=== PATIENT | female | born 1970 | race Caucasian/White ===

== ENCOUNTER 2016-04-02 05:44 | Day surgery (SDC) | payer OTHER ==
[2016-04-02] VITALS (17 sets, daily range): BP systolic 97–124; BP diastolic 46–68; PULSE 74–112; RESP 10–18; O2SAT 93–100
[~2016-04-02] VITALS: Ht 170.2 cm; Wt 84.1 kg
[~2016-04-02 05:44] MED LIST: ALBU8.5H2 INHALATION; CITA20TA11 PO; FLUT12AE8 IH; Lactated Ringer's 1,000 ML IV ONE; MEDR10TA PO; MIRENA IUD VAGINAL
[2016-04-02] MEDS ORDERED: CeFAZolin 2 Gm/50 mL D5W Duplex Bag IV ONE (05:51)
[2016-04-02 06:43] LABS: BASOPHILS % (AUTO) 0.4 % (0-3); EOSINOPHILS % (AUTO) 0.8 % (0-5); MONOCYTES % (AUTO) 8.2 % (4-12); Mean Corpuscular Hemoglobin 30.7 pg (27.0-35.0); Mean Corpuscular Volume 91.1 fL (81-100); NEUTROPHILS % (AUTO) 50.6 % (40-74); Platelet Count 190 bil/L (150-400)
--- NOTE | 2016-04-02 07:27 | PCM.HPANE ---
Patient Data Surgeon Admitting Provider: Attending Provider:Destiney Mendez MD Primary Care Physician:Yo Mead MD Other Provider:Sara Pinkingham Anesthesia Reason for Visit Fibroids, Abnormal Uterine Bleeding Ht/WT & BMI Height (Feet): 5 Height (Inches): 7 Weight (Kilograms): 84.1 Body Mass Index 29.00 Allergies Coded Allergies: No Known Allergies (Unverified , 01/19/16) Past Anesthesia History Anesthesia History: Denies:: Anesthesia Reactions, Malignant Hyperthermia Diabetes History Hx Diabetes?: No MRSA MRSA: No Medications Home Meds Incl Beta Randa: No Reported Medications Citalopram 20 Mg [id number] Mg PO DAILY Ref 0 03/28/16 [Mirena Iud] No Conflict Check Vaginal 20MCG/24H 03/28/16 Medroxyprogesterone Acetate (Provera)10 Mg Qicztm32 Mg PO DAILY 03/28/16 Fluticasone Propionate (Flovent HFA 110 mcg)12 Gm Aer.w.adap1 Puff IH BID #12 GM Ref 0 03/28/16 Albuterol HFA (Proair HFA)8.5 Gm Hfa.aer.ad2 Puffs INHALATION Q4H PRN PRN #1 INHALER 03/28/16 Discontinued Reported Medications Citalopram 20 Mg Tablet #45 01/19/16 Fluticasone Propionate (Flovent HFA 220 mcg)12 Gm Aer.w.adap #24 01/19/16 Discontinued Scripts Medroxyprogesterone Acetate (Provera)10 Mg Qirzmc41 Mg PO BID bleeding #20 TABLET Ref 3 Prov:Meaghan Crow MD 01/19/16 History History of ENT Problems?: Yes HEENT History: Positive for:: Sinus Problem (ALLERGIC RHINITIS) Hx of Heart Problems?: No Cardiovascular History: Denies:: Congestive Heart Failure Hypertension Irregular Heartbeat Valvular Heart Disease Hx of Respiratory Problem?: Yes Respiratory History: Positive for:: Asthma Use of Inhalers / NEBS Denies:: Tuberculosis Use of C-PAP Machine (SNORES) Hx Neurologic Problems?: Yes Hx of GI Problems?: No Hx of Problems?: Yes Female Hx: Denies:: Currently (S/P C/S X2,ENDOMETRIAL BX) Skin History: Denies:: History Skin Disorders? Pressure Ulcers Hx Musculoskeletal Problems?: No Hx of Psycho/Social Problems?: Yes Psycho Social History: Positive for:: Hx Depression Hx Surgeries?: Yes (C/S X2,ENDOMETRIAL BX) Hx Any Other Health Problems?: Yes Other History: Denies:: Cancer Endocrine Disease Hospitalization Thyroid Disease History Blood Transfusions: Denies:: Blood Transfusions Hx Diabetes: No Hx Alcohol Use: YesAlcoholic Drinks Per Day: 3-5/DAY Smoking Status: Current Every Day Smoker Have You Smoked inLast 12 mo: YesApprox How Many Cigarettes/day: 1 PPD Stop/Bang Treated for Sleep Apnea?: No Do You Have a CPAP Machine?: No S-Snoring: Do You Snore Loudly: Yes T-Tired: feel tired, fatigued: Yes O-Obsered: Observed not breath: No P-Blood Pressure: treated: No B- Body Mass Index > 35 kg/m2: No A- Age over 50: No N- Neck Large Circumference: No G- Gender Male: No BONITA Total Score: 2 BONITA Risk Assessment: Low Risk, <3 Yes Risk Assessment Category Category 1A: Patient has history of documented sleep apnea, and HAS NOT received any narcotic, sedative or anesthesia administration during this stay. Category 1B: Patient has history of documented sleep apnea, and HAS received any narcotic , sedative or anesthesia administration during this stay Category 2: Patient has SUSPECTED Obstructive Sleep Apnea, and HAS received any narcotic , sedative or anesthesia administration during this stay. Category 3: Patient has SUSPECTED Obstructive Sleep Apnea and HAS NOT received narcotic, sedative or anesthesia administration during this stay. Category 4: Outpatient in Procedural Areas with known sleep apnea or who screen positive for High Risk via the STOP/BANG questionnaire. Exam Exam Vital Signs Vital Signs Date Time Temp Pulse Resp B/P Pulse Ox O2 Delivery O2 Flow Rate FiO2 04/02/16 06:10 36.5 88 16 114/68 96 Room Air General Appearance: Oriented X3 HEENT/AIRWAY: MP 2 Lungs: Normal Air Movement Heart: Regular Rate/Rhythm Meds/Labs/Diagnostics Admission Meds Current Medications Lactated Ringer's (Lr) 1,000 ml @ 120 mls/hr Q8H20M ONCE IV Last administered on 04/02/16t 05:50; Start 04/02/16 at 05:00; Stop 04/02/16 at 13:19 Labs Test 04/02/16 06:15 White Blood Count 9.5th/mm3 (3.8-10.1) Red Blood Count 4.59mil/mm3 (3.90-5.20) Hemoglobin 14.1g/dL (12.0-15.6) Hematocrit 41.8% (35.0-46.0) Mean Corpuscular Volume 91.1fL (81-100) Mean Corpuscular Hemoglobin 30.7pg (27.0-35.0) Mean Corpuscular Hemoglobin Concent 33.7% (32.0-37.0) Red Cell Distribution Width 13.5% (12.3-15.4) Platelet Count 190bil/L (150-400) Neutrophils (%) (Auto) 50.6% (40-74) Lymphocytes (%) (Auto) 39.9% (14-46) Monocytes (%) (Auto) 8.2% (4-12) Eosinophils (%) (Auto) 0.8% (0-5) Basophils (%) (Auto) 0.4% (0-3) Hematology Comments Sodium Level 136mEq/L (134-144) Potassium Level 4.6mEq/L (3.5-5.2) Chloride Level 103mEq/L (97-108) Carbon Dioxide Level 21mmol/L (18-29) Blood Urea Nitrogen 13mg/dL (6-24) Creatinine 0.66mg/dL (0.57-1.00) Estimat Glomerular Filtration Rate 138mL/min (>59) Glucose Level 101mg/dL (60-99) Calcium Level 8.9mg/dL (8.5-10.1) Human Chorionic Gonadotropin, Qual Negative (Negative) Plan Impression Patient chart reviewed, patient interviewed and anesthestic plan with risks, benefits, and alternatives discussed, and informed consent obtained. NPO Status: [id number] ASA Physical Status: ASA2 Mod Systemic Disease Anesthetic Plan: GA Bene/Risks/Altern/Consents: Yes HP Complete Prior to Induction: Yes Yossi Finley MD Apr 02, 2016 07:27
[2016-04-02] MEDS ORDERED: Lactated Ringer's 1,000 ML IV SCH ×2 (07:28→11:02)
[2016-04-02] MEDS ORDERED: Lactated Ringer's 500 ML IV PRN (07:28)
[2016-04-02] MEDS ORDERED: Ondansetron 2 mg/mL 2 mL Inj IVPUSH PRN ×2 (07:30→11:05)
[2016-04-02] MEDS ORDERED: Phenylephrine 10,000 mCg/mL Inj IVPUSH PRN (07:30)
[2016-04-02] MEDS ORDERED: Labetalol 5 mg/mL 4 mL Inj IV PRN (07:30)
[2016-04-02] MEDS ORDERED: Dexamethasone 4 mg/mL Inj IVPUSH PRN (07:30)
[2016-04-02] MEDS ORDERED: fentaNYL-PF 50 mCg/mL 2 mL Inj IVPUSH PRN (07:30)
[2016-04-02] MEDS ORDERED: HYDROmorphone 1 mg/mL Inj IVPUSH PRN (07:30)
[2016-04-02] MEDS ORDERED: EPHEDrine Sulfate 50 mg/mL Inj IVPUSH PRN (07:30)
[2016-04-02] MEDS ORDERED: MetoCLOpramide 5 mg/mL 2 mL Inj IVPUSH PRN ×2 (07:30→11:05)
[2016-04-02] MEDS ORDERED: Bupivacaine-MPF 0.5% W/EPI 30 mL Inj INFILTRATE ONE (08:43)
[2016-04-02] MEDS ORDERED: Lactated Ringer's 1,000 ML IV ONE (10:43)
[2016-04-02] MEDS ORDERED: HYDROcodone-APAP 5-325 mg Tablet PO PRN (11:05)
[2016-04-02] MEDS ORDERED: Acetaminophen IV 1,000 MG in IV Premix 1 EACH IV PRN (11:05)
[2016-04-02] MEDS ORDERED: Senna-Docusate 8.6-50 mg Tablet PO PRN (11:05)
[2016-04-02] MEDS ORDERED: Alum-Mag Hydrox-Simeth 30 mL Suspension PO PRN (11:05)
[2016-04-02] MEDS ORDERED: MetoCLOpramide 5 mg/mL 2 mL Inj ONE (12:23)
[2016-04-02] MEDS ORDERED: Ondansetron 2 mg/mL 2 mL Inj ONE (12:23)
[2016-04-02] MEDS ORDERED: Dexamethasone 4 mg/mL Inj ONE (12:23)
[2016-04-02] MEDS ORDERED: Neostigmine 1 mg/mL 5 mL Inj ONE (12:23)
[2016-04-02] MEDS ORDERED: Propofol 10,000 mCg/mL 20 mL Inj ONE (12:23)
[2016-04-02] MEDS ORDERED: Ketamine 10 mg/mL 20 mL Inj ONE (12:23)
[2016-04-02] MEDS ORDERED: HYDROmorphone 2 mg/mL Inj ONE (12:23)
[2016-04-02] MEDS ORDERED: Furosemide 10 mg/mL 4 mL Inj ONE (12:23)
[2016-04-02] MEDS ORDERED: Rocuronium 10 mg/mL 5 mL Inj ONE (12:23)
[2016-04-02] MEDS ORDERED: Glycopyrrolate 0.2 mg/mL 5 mL Inj ONE (12:23)
--- NOTE | 2016-04-02 13:08 | PCM.ANEP1 ---
Post Anesthesia Phase 1 PACU Phase 1 Assessment Vital Signs Vital Signs Date Time Temp Pulse Resp B/P Pulse Ox O2 Delivery O2 Flow Rate FiO2 04/02/16 12:20 36.5 100 18 102/51 95 Nasal Cannula 2.00 100 04/02/16 12:00 95 16 100/46 93 Nasal Cannula 2 04/02/16 11:55 105 14 124/67 95 Nasal Cannula 2 04/02/16 11:45 36.2 96 99/46 95 Room Air 04/02/16 11:30 106 98/48 94 Room Air 04/02/16 11:22 82 10 104/62 100 Simple Mask 8 04/02/16 11:20 83 104/62 100 Simple Mask 8 04/02/16 11:15 82 102/57 100 Simple Mask 8 04/02/16 11:10 81 102/57 100 Simple Mask 8 04/02/16 11:05 79 10 102/54 100 Simple Mask 8 04/02/16 11:00 74 11 97/51 99 Simple Mask 8 04/02/16 10:57 35.9 77 12 98/51 98 Simple Mask 8 04/02/16 06:10 36.5 88 16 114/68 96 Room Air Anesthetic Administered: GA Level of Alertness: Awake, talking GERONIMO's with Equal Strength: Yes Pain: No Airway Device: Oralpharangeal Airway Lungs: Normal Air Movement Yossi Finley MD Apr 02, 2016 13:08
--- NOTE | 2016-04-02 13:08 | PCM.ANEP2 ---
Post Anesthesia Evaluation ASA/CMS Post Anesthesia VS in Patient's Normal Range?: Yes Resp Stable; Airway Patent?: Yes CV Function & Hydration Stable: Yes Mental Status Recovered?: Yes Pain control Satisfactory?: Yes N/V Control Satisfactory?: Yes Yossi Finley MD Apr 02, 2016 13:08
--- NOTE | 2016-04-02 14:19 | NUR ---
PT received from PACU with belongings at 1220. Moved to bed and repositioned, pt responsive but not fully alert. Oxygen on at 2lpm via NC, IV infusing at 125cc/hr. Cole secure and draining blue tinged urine. Abdomen incision sites intact, no vaginal bleeding noted. PT sleepy but does rouse and answer questions. Spouse and children in room at 1230 and updated that patient will be remaining overnight per MD order for observation and pain control. Pt denies pain at this time. Spous eleft with children for lunch. Pt oxygen removed at 1400 with oygen sats holding at 97%. Temp noted to be 38.0 at 1345, wrapped in 4 blankets up around head. Rechecked at 1420 with temp down to 37.6, Will continue to monitor. Dr Mendez updated of patient desire to discharge home and temp.
--- NOTE | 2016-04-02 15:30 | OP ---
[address] [address] OPERATIVE REPORT PATIENT: ZHEN VALENTINE : 1970 MR#: [id number] ADMIT: 04/02/2016 JOB ID: [id number] DATE OF SURGERY: 04/02/2016 SURGEON: Destiney Mendez MD EMPLOYEE WELLNESS/FITNESS COORDINATOR: Victor Manuel Zarate MD SECOND SELVAGE MACHINE OPERATOR: Medical student. PRODUCT ACCOUNTANT physician as a engineer first assistant is necessary to complete the procedure. PREOPERATIVE DIAGNOSIS(ES): A 45-year-old female, para 2, menorrhagia, sub- mucosa uterine fibroid. POSTOPERATIVE DIAGNOSIS(ES): A 45-year-old female, para 2, menorrhagia, sub- mucosa uterine fibroid. INDICATION OF THE PROCEDURE: A 45-year-old female, para 2, menorrhagia, sub mucosa uterine fibroid. This is a patient who had heavy menstruation and was noticed to have a submucosal uterine fibroid about 5-6 cm and the endometrium biopsy showed no malignancy. Decision was made to have a total hysterectomy and also with bilateral salpingectomy. Decision was made to keep the ovaries if they look normal. The patient understood the risk of infection, bleeding, injury to the organs around the uterus including but not limited to the bladder, ureters, major vessels and nerves and bowels. She understood the risk of blood transfusion. She understood the risk of the procedure converted to laparotomy. We also discussed about the possibility of malignancy by imaging history and benign endometrium biopsy, the chance of malignancy is minimal. If the pathology showed malignancy, there was a possibility for reoperating. DESCRIPTION OF PROCEDURE: Patient was transferred to operating room after general anesthesia was noted to be adequate. She was placed in the dorsal lithotomy position. She was prepared in a normal sterile fashion and Cole catheter inserted for urine drainage. Speculum inserted to vagina to expose the cervix. The cervix was grasped by a single-tooth tenaculum. The cervix was dilated without difficulty and the medium-sized v-care was placed for manipulating the uterus. Then the Veress needle inserted through the umbilical area. After confirmed of placement, CO2 gas inserted to form pneumoperitoneum. At this time, the Veress needle removed. A 5 mm incision placed on her umbilicus. A 5 mm trocar was placed with direct visualization. Then another two 5 mm incisions were placed at the lower abdomen and two 5 mm trocars were placed with direct visualization. At this time, the pelvis and abdominal cavity was examined. There was no abnormal finding of her upper abdominal cavity. Her lower abdominal cavity noticed the uterus was enlarged about 10 cm in size. Right ovary and tubes looked normal and left tube looked normal. The left ovary has about 3 cm simple cyst. There was adhesion was noticed between her bladder and her anterior uterine wall and the uterine cervix. At this time, then the procedure started on the left side. The right fallopian tube was grasped and the mesosalpinx was grasped, coagulated and cut with a standard beam instrument in steps. At this time, the ovarian uterine ligament and round ligament were grasped, coagulated and cut in steps. The broad ligament was brought down with coagulation and cut to the level of the internal cervical os. The anterior lip of the broad ligament was carried down to the midline and the posterior slip was carried down to the level of the uterine sacral ligament. Then the broad ligament was skeletonized to expose the uterine artery. The uterine was coagulated multiple times, and after the bladder tried to lower down from the cervix. Then the attention was transferred to the right side. The same procedure was performed on the right side and then after the coagulation of the right uterine artery, the right uterine artery was cut and the bladder was further from the cervix and then lowered down. Then, at this time, it was noticed the whole cervical area was well exposed and good hemostasis confirmed. Then the corpectomy was performed with the standard beam and then this incision was extended completely circular and the uterus was from the vagina. Then the uterus was removed vaginally completely. At this time, the attention was changed back to the vaginal cuff. The vaginal cuff was repaired laparoscopically continuously. After the repair, hemostasis was confirmed for the vaginal cuff and for the pedicles in her pelvis. Then the attention was transferred to the left ovary which had a simple cyst. The 5 mm incision was placed on the cyst and clear fluid was noticed. No further management was done. At this time, the incision was placed by 4-0 Monocryl subcutaneously and then the attention was transferred to cystoscopy. A cystoscopy scope was inserted to her bladder. No laceration of bladder noticed. But there was no urine seen from both of her ureters. At this time, I think the lack of urine is because of dehydration, so 20 mg of Lasix and methylene blue was given. During waiting , there was changing hands between physicians. Perforation of the bladder was suspected during this manuver. Scope was replaced and noticed a perforation about or less than 5mm. There was no, or minimal fluid leaking out, and the bladder can maintain good pressure. The cystoscopy was completed with seeing blue- colored urine from both her ureters. Decision made that no repair will be needed at this moment. At this time, all fluid drained. Cole catheter reinserted. All instrument, needles, laps and gauzes counted correct twice. EBL during the procedure was 50 cc. IV fluid given was 1.1 L. The patient was transferred to recovery room in a stable condition. [facility]ENTER[facility]man
--- NOTE | 2016-04-02 16:17 | NUR ---
UP TO BEDSIDE AND AMBULATED IN ROOM WITHOUT CONCERN. PT IS ALERT AND SPEAKING WITH FAMILY. TOLERATED GENERAL DIET WELL. LINCOLN CONTINUES TO DRAIN BLUE TINGED URINE.
[2016-04-02] MEDS ORDERED: Influenza (Adult) Vaccine 0.5 mL Syringe IM ONE (16:30)
--- NOTE | 2016-04-02 17:52 | NUR ---
PT diuresing large amount. Intake of oral fluids excellent. IV to SL.
[2016-04-02] MEDS ORDERED: Senna-Docusate 8.6-50 mg Tablet PO SCH (20:30)
--- NOTE | 2016-04-02 23:31 | NUR ---
shift note Assumed care of pt. at 1930. Pt. pain controlled with IBU and oxycodone. SCD's on while in bed. Cole patent, urine changing from bluish green to faint green at end of shift. Pt. ambulated x1, tolerated well. Pt. reports being eager to go home tomorrow.
--- NOTE | 2016-04-03 00:22 | NUR ---
Pain: Delightful post of vag hyst pt states she has no pain. "When is this pain supposed to start?". Does wish to be medicated routinely to avoid onset of pain. Stable, normal bowel tones, has not passed flatus. Understands POC, with assessment mid shift, pain meds @ 0300 and funes to be dc's @ 0500. Provider will round on patient in am with plan to discharge. Patient would like flu shot prior to discharge.
[2016-04-03 03:00] VITALS: BP 100/50; PULSE 90; RESP 18
[2016-04-03] MEDS ORDERED: Influenza (Adult) Vaccine 0.5 mL Syringe IM ONE ×2 (03:13→10:57)
--- NOTE | 2016-04-03 05:26 | NUR ---
Kelsey elaine'd @ 0500 per MD order. 1400 output this shift. Hat in bathroom for patient use. Urine pale light blue/green.
[2016-04-03] MEDS ORDERED: CeFAZolin Inj 2 GM in IV Premix 1 EACH IV SCH (06:00)
[2016-04-03] MEDS ORDERED: IBUP-1827 PO (06:34)
[2016-04-03] MEDS ORDERED: OXYC1TAB24 PO (06:34)
[2016-04-03] MEDS ORDERED: DOCU-41 PO (06:34)
--- NOTE | 2016-04-03 06:43 | PCM.DIGYN ---
Surgical Discharge Instruction Dates of Hospitalization Date of Hospital Admission Apr 02, 2016 at 12:22 Providers Admitting Physician: Destiney Mendez MD Primary Care Physician: Yo Mead MD Attending Physician: Destiney Mendez MD Diagnosis at Time of Discharge Diagnosis at time of discharge Status post total vaginal hysterectomy with bilateral salpingectomy Problems: Diet Discharge Diet: No restrictions Activity Discharge Activity-General: Try not to overdue, Be up and about, Balance rest and activity, Activity as pain allows, Activity as energy allows, No lifting > 10 pounds for 4-6 weeks Dressing and Incisional Care Hygiene: May shower, DO NOT soak incision under water, NO bathtub, hot tub or whirlpool Additional Instructions Discharge Instructions -It is very important that your avoid straining for the next 6 weeks as the increased pressure can dislodge your stitches, this means that we need to keep your bowel movements easy and that you need to avoid lifting anything greater than 10 pounds for 6 weeks. -We have given you a stool softener to keep reduce the effort of your bowel movements -Try to minimize your use of Percocet as this will tend to make you constipated -That being said use the Ibuprofen before your pain gets too bad, it is easier to stay ahead of pain and prevent it than catch back up once the pain is established -You have been prescribed an antibiotic for a likely Urinary tract infection, please take all meds as directed until the bottle is empty -You have been discharged with a Cole catheter, please care for and empty that device as directed Follow Up Plan Follow Up Plan Follow up with Dr. Mendez in 1 week Follow-up Provider (F9): Destiney Mendez MD Follow-up appointment: Weeks (1) Call your provider for: Fever, Chills, Shortness of breath, Vomitting, Drainage at incision, Heavy vaginal bleeding, Wound redness, Increasing pain, Other (blood in your urine) David Urias DO Apr 03, 2016 06:43
--- NOTE | 2016-04-03 07:05 | PCM.DC.SUR ---
Discharge Summary Date of Service: Apr 03, 2016 Date of Hospital Admission: Apr 02, 2016 at 12:22 Date of Operation(s): 04/02/15 Date of Discharge: 04/03/15 Diagnosis at Time of Discharge Status post Total Vaginal Hysterectomy with BL salpingectomy Problems: Operation Total Vaginal Hysterectomy with BL salpingectomy Brief History and Physical: Taken From Operative Note composed by Dr. Mendez on 04/02/15 This is a patient who had heavy menstruation and was noticed to have a submucosal uterine fibroid about 5-6 cm and the endometrium biopsy showed no malignancy. Decision was made to have a total hysterectomy and also with bilateral salpingectomy. Decision was made before the procedure that to keep the ovaries if they look normal. The patient understood that for the procedure the risk of infection, bleeding, injury to the organs around the uterus including but not limited to the bladder, ureters, major vessels and nerves and bowels. She understood the risk of blood transfusion. She understood the risk of the procedure converted to laparotomy. We also discussed about the possibility of malignancy by imaging history and benign endometrium biopsy, the chance of malignancy is minimal. If the pathology showed malignancy, there was a possibility for reoperating. Physical Exam Gen: A/O x3 pleasant cooperative woman in NAD HEENT: PERRL, EOMI, no scleral icterus, no conjunctival pallor, mucous membranes pink and moist Neck: Supple, non tender, no JVD CV: RRR no murmurs rubs or gallops Resp: Lungs CTA BL, no wheezing rales or rhonchi Abdomen: Soft, mildly diffusely appropriately tender, well approximated laparoscopic incisions without erythema or discharge, BS + 4q Extr: Non cyanosis, clubbing, or edema Neuro: CN 2-12 grossly intact, no focal neurologic deficit Psych: Pleasant and appropriate mood and affect Hospital Course: Taken from Operative note composed by Dr. Mendez on 04/02/15 Patient was transferred to operating room after general anesthesia was noted to be adequate. She was placed in the dorsal lithotomy position. She was prepared in a normal sterile fashion and Funes catheter inserted for urine drainage. Speculum inserted to vagina to expose the cervix. The cervix was grasped by a single-tooth tenaculum. The cervix was dilated without difficulty and the medium-sized manipulator placed for manipulating the uterus. Then the Veress needle inserted through the umbilical area. After confirmed of placement , CO2 gas inserted to form pneumoperitoneum. At this time, the Veress needle removed. A 5 mm incision placed on her umbilicus. A 5 mm trocar was placed with direct visualization. Then another two 5 mm incisions were placed at the lower abdomen and two 5 mm trocars were placed with direct visualization. At this time, the pelvis and abdominal cavity was examined. There was no abnormal finding of her upper abdominal cavity. Her lower abdominal cavity noticed the uterus was enlarged about 10 cm in size. Right ovary and tubes looked normal and left tube looked normal. The left ovary has about 3 cm simple cyst. There was adhesion was noticed between her bladder and her anterior uterine wall and the uterine cervix. At this time, then the procedure started on the left side. The right fallopian tube was grasped and the mesosalpinx was grasped, coagulated and cut with a standard beam instrument in steps. At this time, the ovarian uterine ligament and round ligament were grasped, coagulated and cut in steps. The broad ligament was brought down with coagulation and cut to the level of the internal cervical os. The anterior lip of the broad ligament was carried down to the midline and the posterior slip was carried down to the level of the uterine sacral ligament. Then the broad ligament was skeletonized to expose the uterine artery. The uterine was coagulated multiple times, and after the bladder tried to lower down from the cervix. Then the attention was transferred to the right side. The same procedure was performed on the right side and then after the coagulation of the right uterine artery, the right uterine artery was cut and the bladder was further from the cervix and then lowered down. Then, at this time, it was noticed the whole cervical area was well exposed and good hemostasis confirmed. Then the corpectomy was performed with the standard beam and then this incision was extended completely circular and the uterus was from the vagina. Then the uterus was removed vaginally completely. At this time, the attention was changed back to the vaginal cuff. The vaginal cuff was repaired laparoscopically continuously. After the repair, hemostasis was confirmed for the vaginal cuff and for the pedicles in her pelvis. Then the attention was transferred to the left ovary which had a simple cyst. The 5 mm incision was placed on the cyst and clear fluid was noticed. No further management was done. At this time, the incision was placed by 4-0 Monocryl subcutaneously and then the attention was transferred to cystoscopy. A cystoscopy scope was inserted to her uterus and was noticed there was no urine spilled from both of her ureters. At this time, I think the lack of urine is because of dehydration, so 20 mg of Lasix and methylene blue was given. During waiting of the medication to get in fill into the bladder, there was replacement of the cystoscopy scope. During the replacement, there was a laceration. Her bladder stone that was less than 5 mm and there was no active bleeding noticed and with the cystoscopy, there was no fluid leaking out significantly because the tension was well maintained with no extra fluid to go inside her bladder. After the methylene blue was given, there was still of the blue- colored urine from both her ureters. At this time, all fluid drained. Funes catheter reinserted. All instrument, needles, laps and gauzes counted correct twice. EBL during the procedure was 50 cc. IV fluid given was 1.1 L. The patient was transferred to recovery room in a stable condition. Prior to discharge the patient had continued post void residual after urination of approximately 250-300 cc, furthermore she appeared to have a urinary tract infection. Thus she was discharged with a Funes catheter and a 1 week prescription for ciprofloxacin and instructed to follow up in [address] Mendez for further evaluation. At the time of discharge the patient was doing quite well, in a very minimal amount of pain that was tolerable with PO analgesia, she was ambulating independently without difficulty, her appetite was good, and she stated that she was ready to go home. Disposition: Home with no needs Follow-up Plan: Follow up with Dr. Mendez in 2 weeks ([Mirena Iud]) VAGINAL (Reported) 20MCG/24H Albuterol HFA (Proair HFA) 8.5 Gm Hfa.aer.ad 2 PUFFS INHALATION Q4H PRN PRN PRN (Reported) Citalopram (Citalopram) 20 Mg Tablet 30 MG PO DAILY (Reported) Docusate Sodium (Colace) 100 Mg Capsule 100 MG PO BID PRN PRN For Constipation Fluticasone Propionate (Flovent HFA 110 mcg) 12 Gm Aer.w.adap 1 PUFF IH BID ( Reported) Ibuprofen (Ibuprofen) 600 Mg Tablet 600 MG PO Q6H PRN PRN For Mild Pain Medroxyprogesterone Acetate (Provera) 10 Mg Tablet 10 MG PO DAILY (Reported) oxyCODONE-Acetaminophen 5-325 mg (oxyCODONE-Acetaminophen 5-325 mg) 1 Each Tablet 1-2 TAB PO Q4H PRN PRN For Moderate Pain Attending Statement: Patient could not void well after funes catheter removed today. Foely was replaced and patient request to go home today. She will go home with leg bag for 2 weeks with cipro 100mg bid. I will see her in one week. I will contact urologist and schedule appoinment for her for evaluation with urologist before funes be removed. copies to: Yo Mead MD, David E DO Apr 03, 2016 07:05 Destiney Mendez MD Apr 06, 2016 15:36
[2016-04-03 07:16] LABS: BASOPHILS % (AUTO) 0.2 % (0-3); EOSINOPHILS % (AUTO) 0.1 % (0-5); MONOCYTES % (AUTO) 6.9 % (4-12); Mean Corpuscular Hemoglobin 30.5 pg (27.0-35.0); Mean Corpuscular Volume 92.4 fL (81-100); NEUTROPHILS % (AUTO) 63.3 % (40-74); Platelet Count 172 bil/L (150-400)
[2016-04-03 09:29] VITALS: BP 109/56; PULSE 96; RESP 16; O2SAT 98
[2016-04-03] MEDS: oxyCODONE-Acetamin 5-325 mg Tablet PO PRN ×2 (09:45→14:17)
--- NOTE | 2016-04-03 10:11 | NUR ---
[id number] assessment: Initial assessment shortly after 0900. Pt's VSS 109/56 P 98 T. 36.6 orally. Pt reports ambulating this morning, voiding a normal amount after catheter removed (only 100ml in urine container. Nurse unsure if some of pt's void missed container). Pt ate a breakfast sandwich, drinking PO fluids and rating her incisional pain 2/10 with a smile. Nurse called assessment to Dr. Mednez. Nurse went to pull pain medication when emergency light went on in her room. Upon reentering her room pt reported that pt had sudden severe pain when she ambulated to bathroom 10-03/09 sharp rt abdominal moving to back and then "... all over". Dr. Mendez and other nurses already in the room answering emergency light. Bladder scan showed 251ml. 600mg ibuprofen and two tablets of percocet. K-pad provided to also manage pain. 20 minutes later pt more relaxed and she said her pain is subsiding now that her pain medication is set in. Nurse set call light near pt, lowered lights and will reassess.
--- NOTE | 2016-04-03 13:15 | NUR ---
Pt reporting mild rt shoulder pain. She has ambulated hallway shortly after lunch. Her pain is decreased and at an acceptable level. Repeat bladder scanner only scanned 25ml at 1215. She denied being able to void. She is increasing her PO intake. Provider notified of above. Plan to rebladder scan in one hour, then attempt to void and rebladder scan.
[2016-04-03] MEDS ORDERED: Lidocaine 2% 5 mL Urojet Topical Jelly Syringe ONE (13:53)
[2016-04-03 14:28] VITALS: BP 116/57; PULSE 76; RESP 18; O2SAT 97
--- NOTE | 2016-04-03 15:11 | NUR ---
Bladder scanned at 1325 for 287ml. Pt unable to void at 1330. Repeat bladder scanned 6ml (scanned by same nurse, on male setting d/t vaginal hysterectomy in same location tried several times). Dr. Mendez notified. Cole catheter ordered and inserted for 200ml right away. Nurse called provider back. Plan for discharge to home with leg bag and cipro antibiotics 500mg po bid for 7 days. Prescription electronically ordered to [facility]'s pharmacy. Pt continues to manage pain with ibuprofen and percocet. She received discharge instructions for use of home medications. She also received hard copy's of colace, ibuprofen and percocet prescription that pt's is filling now. Evening shift nurse notified of discharge plans and will finalize discharge orders, signing and leg bag teaching.
--- NOTE | 2016-04-04 10:39 | PATH ---
SURGICAL PATHOLOGY Attending Physician:Destiney Mendez MD CASE STATUS: Signed Out PATIENT NAME: ZHEN VALENTINE PID: [id number] : 1970 DATE COLLECTED:04/02/2016 20:21 SPECIMEN: Uterus +/- tubes/ovaries, except neoplastic, prolapse CLINICAL HISTORY: FIBROIDS, ABNORMAL UTERINE BLEEDING 1). UTERUS WITH CERVIX, BILATERAL FALLOPIAN TUBES FINAL DIAGNOSIS: 1.UTERUS WITH CERVIX, BILATERAL FALLOPIAN TUBES: INTRAMURAL LEIOMYOMA. BENIGN PARATUBAL CYSTS. ICD10 CODE D25.1 N83.9 GROSS DESCRIPTION: The specimen is received in formalin, labeled with the patient's name, sublabeled as uterus w/ cervix & bilateral fallopian tubes, and consists of a uterus (144 g, 5.6 cm AP, 9.4 cm SI, 6.2 cm ML) with attached fimbriated fallopian tubes (right: length-6.2 cm, diameter-0.6 cm; left: length-7.5 cm, diameter-0.5 cm). The ovaries are absent. The cervix (1.9 cm AP, 3.1 cm ML) has a transverse os and patent endocervical canal. The endometrium (average thickness-0.1 cm) is lacy-pink smooth and flat. The myometrium (thickness-0.9 cm to 3.1) is lacy and contains a murphy-white solid firm well circumscribed mass (4.8 x 4.4 x 3.5 cm) protruding into the endometrial cavity from the posterior aspect. The fallopian tubes have lacy-purple smooth shiny serosa with multiple paratubal cysts (0.6 cm-4.8 cm) containing clear colorless fluid. The lumens are lacy and unremarkable. 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 04/03/16 JM MICRO DESCRIPTION: See diagnosis. ICD-9 CODES: CPT CODES: 1: 87989 Electronically Signed Out Nani Iglesias MD [facility] [address], [place] [address] Technical component performed at [facility], [address], [place], [address]
== END 2016-04-03 17:30 | disposition home or self-care (01) ==
LOC: SAS 05:44 → UNDOADMIN 12:22 → FBC 12:22 → SAS 04-03 17:30
PROVIDERS: ATTEND Obstetrics & Gynecology
DX: N93.9 Abnormal uterine and vaginal bleeding, unspecified (principal); D25.0 Submucous leiomyoma of uterus; J45.909 Unspecified asthma, uncomplicated; F41.9 Anxiety disorder, unspecified; F17.210 Nicotine dependence, cigarettes, uncomplicated; F32.9 Major depressive disorder, single episode, unspecified; Z79.890 Hormone replacement therapy; Z23 Encounter for immunization
CPT/HCPCS: 36415; 58571; 80048; 84703; 85025; 88307; 90471; J0131; J1100; J1170; J1940; J2405; J2710; J2765; J7120; Q2039

== ENCOUNTER → 2016-10-04 | Day surgery (SDC) | payer OTHER ==
[2016-10-04] VITALS (10 sets, daily range): BP systolic 108–132; BP diastolic 71–91; PULSE 79–98; RESP 10–18; O2SAT 96–100
[~2016-10-04] VITALS: Ht 170.2 cm; Wt 84.5 kg
[~2016-10-04] MED LIST changes: +Bupivacaine-MPF 0.5% 30 mL Inj INFILTRATE ONE; +CeFAZolin Inj 2 GM in IV Premix 1 EACH IV ONE; +Dexamethasone 4 mg/mL Inj IVPUSH PRN; +Dexamethasone 4 mg/mL Inj ONE; +EPHEDrine Sulfate 50 mg/mL Inj IVPUSH PRN; +HYDROcodone-APAP 5-325 mg Tablet PO PRN; +HYDROmorphone 1 mg/mL Inj IVPUSH PRN; +Ketamine 10 mg/mL 20 mL Inj ONE; -Lactated Ringer's 1,000 ML IV ONE; +Lactated Ringer's 1,000 ML IV SCH; +Lactated Ringer's 500 ML IV PRN; -MEDR10TA PO; -MIRENA IUD VAGINAL; +MetoCLOpramide 5 mg/mL 2 mL Inj IVPUSH PRN; +Ondansetron 2 mg/mL 2 mL Inj IVPUSH PRN; +Ondansetron 2 mg/mL 2 mL Inj ONE; +Phenylephrine 10,000 mCg/mL Inj IVPUSH PRN; +Propofol 10,000 mCg/mL 20 mL Inj ONE; +Remifentanil 1 mg/3 mL Inj ONE; +fentaNYL-PF 50 mCg/mL 2 mL Inj IVPUSH PRN; +fentaNYL-PF 50 mCg/mL 2 mL Inj ONE
[2016-10-04] MEDS: Lactated Ringer's 1,000 ML IV SCH ×2 (05:55→07:47)
--- NOTE | 2016-10-04 07:05 | PCM.HPANE ---
Patient Data Surgeon Admitting Provider: Attending Provider:Bandar Montero DPM Primary Care Physician:Yo Mead MD Other Provider:Queenie Pink Anesthesia Reason for Visit Right Foot Hallux Rigidus Ht/WT & BMI Height (Feet): 5 Height (Inches): 7.00 Weight (Kilograms): 84.500 Body Mass Index 29.00 Allergies Coded Allergies: varenicline (Verified Adverse Reaction, Severe, ITCHING, 09/27/16) Past Anesthesia History Anesthesia History: Denies:: Abnormal Airway, Anesthesia Reactions, Difficult Intubation, Malignant Hyperthermia Diabetes History Hx Diabetes?: No MRSA MRSA: No Medications Hypertension Medication: No Home Meds Incl Beta Randa: No Reported Medications Citalopram 20 Mg [id number] Mg PO DAILY Ref 0 03/28/16 Fluticasone Propionate (Flovent HFA 110 mcg)12 Gm Aer.w.adap1 Puff IH BID #12 GM Ref 0 03/28/16 Albuterol HFA (Proair HFA)8.5 Gm Hfa.aer.ad2 Puffs INHALATION Q4H PRN PRN #1 INHALER 03/28/16 Discontinued Reported Medications [Mirena Iud] No Conflict Check Vaginal 20MCG/24H 03/28/16 Medroxyprogesterone Acetate (Provera)10 Mg [id number] Mg PO DAILY 03/28/16 Discontinued Scripts Ibuprofen 600 Mg [id number] Mg PO Q6H PRN For Mild Pain #90 TABLET Prov:David Urias DO 04/03/16 oxyCODONE-Acetaminophen 5-325 mg 1 Each Tablet1-2 Tab PO Q4H PRN For Moderate Pain #30 TABLET Prov:David Urias DO 04/03/16 Docusate Sodium (Colace)100 Mg [id number] Mg PO BID PRN For Constipation #60 CAPSULE Prov:David Urias DO 04/03/16 History History of ENT Problems?: Yes HEENT History: Positive for:: Sinus Problem (ALLERGIC RHINITIS) Denies:: Abnormal Airway Cataracts Difficult Intubation Dysphagia Glaucoma Hearing Problem TMJ Denture Type: None Teeth Condition: Within Normal Limits Hx of Heart Problems?: No Cardiovascular History: Denies:: Congestive Heart Failure Hypertension Irregular Heartbeat Valvular Heart Disease Hx of Respiratory Problem?: Yes Respiratory History: Positive for:: Asthma Use of Inhalers / NEBS Denies:: Tuberculosis Use of C-PAP Machine (SNORES) Hx Neurologic Problems?: Yes Hx of GI Problems?: No Hx of Problems?: Yes HX of Peritoneal Dialysis: No Female Hx: Denies:: Currently (S/P C/S X2,ENDOMETRIAL BX) Skin History: Denies:: History Skin Disorders? Pressure Ulcers Hx Musculoskeletal Problems?: Yes Hx of Psycho/Social Problems?: Yes Psycho Social History: Positive for:: Anxiety Hx Depression Hx Surgeries?: Yes (C/S X2,ENDOMETRIAL BX) Hx Any Other Health Problems?: Yes Other History: Denies:: Cancer Endocrine Disease Hospitalization Thyroid Disease History Blood Transfusions: Denies:: Blood Transfusions Hx Diabetes: No Hx Alcohol Use: Yes Smoking Status: Current Every Day Smoker Have You Smoked inLast 12 mo: YesApprox How Many Cigarettes/day: <1 PPD PLUS E CIG as well Stop/Bang S-Snoring: Do You Snore Loudly: Yes T-Tired: feel tired, fatigued: Yes O-Obsered: Observed not breath: No P-Blood Pressure: treated: No B- Body Mass Index > 35 kg/m2: No A- Age over 50: No N- Neck Large Circumference: No G- Gender Male: No BONITA Total Score: 2 Risk Assessment Category Category 1A: Patient has history of documented sleep apnea, and HAS NOT received any narcotic, sedative or anesthesia administration during this stay. Category 1B: Patient has history of documented sleep apnea, and HAS received any narcotic , sedative or anesthesia administration during this stay Category 2: Patient has SUSPECTED Obstructive Sleep Apnea, and HAS received any narcotic , sedative or anesthesia administration during this stay. Category 3: Patient has SUSPECTED Obstructive Sleep Apnea and HAS NOT received narcotic, sedative or anesthesia administration during this stay. Category 4: Outpatient in Procedural Areas with known sleep apnea or who screen positive for High Risk via the STOP/BANG questionnaire. Exam Exam Vital Signs Vital Signs Date Time Temp Pulse Resp B/P Pulse Ox O2 Delivery O2 Flow Rate FiO2 10/04/16 06:30 36.5 79 12 112/77 96 Room Air 10/04/16 06:17 36.5 79 12 112/77 96 Room Air General Appearance: Alert, Oriented X3, Cooperative, No Acute Distress HEENT/AIRWAY: MP 2 Lungs: Clear to Auscultation, Normal Air Movement Heart: Exam Unremarkable, Regular Rate/Rhythm, No Murmurs/Rubs/Gallops Meds/Labs/Diagnostics Admission Meds Current Medications Lactated Ringer's (Lr) 1,000 ml @ 120 mls/hr Q8H20M IV Last administered on t 05:55; Start 10/04/16 at 05:00; Stop 10/04/16 at 13:19 Plan Impression Patient chart reviewed, patient interviewed and anesthestic plan with risks, benefits, and alternatives discussed, and informed consent obtained. NPO per Anesth. Guidelines: Yes ASA Physical Status: ASA2 Mod Systemic Disease Anesthetic Plan: GA Bene/Risks/Altern/Consents: Yes HP Complete Prior to Induction: Yes Shaggy Sousa MD Oct 04, 2016 07:05
--- NOTE | 2016-10-04 08:31 | PCM.PODPO ---
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 All preoperative comorbidities and allergies were identified and thoroughly discussed. The patient was transported into the operating room and placed on the operating room table in the normal supine position. The patient was then prepped and draped in the normal aseptic technique. A preoperative block consisting of 10 mL half percent Marcaine plain was given in a Massey block fashion around the base of the first metatarsal. Attention was first paid to the dorsomedial aspect of the first metatarsal phalangeal joint. A #15 blade was utilized to make a curvilinear incision approximately 4-1/2 cm in length overlying the first metatarsal phalangeal joint once that initially her skin all subcutaneous neurovascular structures were identified and retracted out of the surgical field. A Metzenbaum scissor was then utilized to bluntly and sharply dissected through subcutaneous tissue identifying the extensor hallucis longus tendon which was retracted laterally and the medial neurovascular bundle which was retracted medially. A fresh #15 blade was then utilized to incise through capsular tissue which was reflected medially and laterally exposing the first metatarsal phalangeal joint. A sagittal saw was then utilized to resect an enlarged dorsal medial eminence taking care not to injure or disrupt the sagittal groove. The sagittal saw was then utilized to resect approximately the dorsal 40% of the articular surface and first metatarsal head. A rongeur was then utilized to remove any further bony prominence. The rongeur was also utilized to remove bony prominence of the base of the great toe. The articular surface of the hallux appeared in normal condition. The hallux was then placed through range of motion and found to be greater than 60 of dorsiflexion available. This wound was then copiously flushed deep closure was performed utilizing number 3. 0 Vicryl and skin closure was performed utilizing number 3. 0 Prolene. The hallux was placed through range of motion again and found to be freely mobile without restriction. Intraoperatively an additional 10 mL of half percent Marcaine was given around the base of the first metatarsal. Mac anesthesia was converted to general anesthesia due to excessive patient movements. No complications occurred during this procedure the patient was then dressed utilizing Adaptic sterile 4 x 4 gauze Kerlix and Coban. The patient was awoken by anesthesia and transported out of the operating room into the postanesthesia care unit. Grafts, Implants: None Complications There were no periprocedural complications identified. Condition Stable Anesthetic Administered: GA Catheters: None Output, Estimated Blood Loss: 20 Blood Admin during surgery: No Surgical Cast or Splint: Other (surgical shoe) Surgical Specimen Removed: No Specimen sent to Pathology: No Post Operative Plan Ice and elevate right foot Partial weightbearing to the right heel Keep dressing clean dry and intact Follow-up in 1 week Bandar Montero DPM Oct 04, 2016 08:31
--- NOTE | 2016-10-04 09:23 | PCM.ANEP1 ---
Post Anesthesia PACU Phase 1 Assessment Vital Signs Vital Signs Date Time Temp Pulse Resp B/P Pulse Ox O2 Delivery O2 Flow Rate FiO2 10/04/16 08:52 90 18 111/79 97 Room Air 10/04/16 08:45 79 10 108/81 97 Room Air 10/04/16 08:40 36.5 86 12 109/74 97 Nasal Cannula 2 10/04/16 08:35 83 15 124/91 100 Nasal Cannula 2 10/04/16 08:30 88 14 127/80 100 Nasal Cannula 2 10/04/16 08:25 91 14 132/77 100 Nasal Cannula 2 10/04/16 08:23 36.6 98 14 129/71 100 Nasal Cannula 2 10/04/16 06:30 36.5 79 12 112/77 96 Room Air 10/04/16 06:17 36.5 79 12 112/77 96 Room Air Anesthetic Administered: GA Level of Alertness: Awake, talking GERONIMO's with Equal Strength: Yes Pain: No Nausea or Vomiting: No CV Function & Hydration Stable: Yes Airway Device: none Oxygen Delivery: Nasal Cannula Lungs: Clear to Auscultation, Normal Air Movement Dermatome Level: Full Sensation PACU Phase 2 Assessment Complications: No Follow up Care: No Patient Instructions Provided: Yes Shaggy Sousa MD Oct 04, 2016 09:23
== END | disposition home or self-care (01) ==
LOC: SAS 05:46
PROVIDERS: ATTEND Podiatrist Foot & Ankle Surgery
DX: M20.21 Hallux rigidus, right foot (principal); J45.909 Unspecified asthma, uncomplicated; F41.8 Other specified anxiety disorders; F17.210 Nicotine dependence, cigarettes, uncomplicated; Z90.710 Acquired absence of both cervix and uterus
CPT/HCPCS: 28289; J0690; J1100; J1170; J2250; J2405; J3010; J7120